=== PATIENT | female | born 1945 | race Caucasian/White ===

== ENCOUNTER 2021-09-05 11:57 | Emergency (ER) | payer MEDICARE ==
[2021-09-05 13:53] LABS: #Basophils 0.1 10x3/uL (0.0-0.2); #Eosinphils 0.1 10x3/uL (0.0-0.5); #Monocytes 1.1 10x3/uL (0.0-1.1); #Neutrophils 13.4 10x3/uL (1.5-8.4); %Basophils 0.5 % (0.0-2.0); %Eosinophils 0.9 % (0.0-6.0); %Lymphocytes 4.6 % (18.0-47.0); %Neutrophils 86.6 % (40.0-75.0); Hemoglobin 12.5 g/dL (12.0-15.5); Mean Corpuscular HGB CONC 30.9 g/dL (32.0-36.0); Mean Corpuscular Hemoglobin 29.3 pg (27.0-33.0); Mean Corpuscular Volume 95.1 fl (81.6-98.3); Mean Platelet Volume 10.9 fl (7.4-10.4); Platelet Count 283 10x3/uL (150-450); RBC Distribution Width 14.4 % (11.5-14.5); Red Blood Cell (RBC) Count 4.26 10x6/uL (3.90-5.03); White Blood Cell (WBC) Count 15.5 10x3/uL (3.5-10.5)
[2021-09-05 14:19] LABS: ALT (SGPT) 13 U/L (8-55); AST (SGOT) 22 U/L (5-34); Albumin 3.8 g/dL (3.4-4.8); Alkaline Phosphatase 113 U/L (40-110); Anion Gap 12 mmol/L (10-20); BUN (Urea Nitrogen) 25 mg/dL (9.8-20.1); Bilirubin, Total 0.3 mg/dL (0.2-1.2); Calc. Creatinine Clearance 0 mL/min (70-130); Carbon Dioxide 32 mmol/L (23-31); Chloride 102 mmol/L (98-107); Globulin 4.1 g/dL (2.4-3.5); Glucose 105 mg/dL (83-110); Potassium 4.2 mmol/L (3.5-5.1); Protein, Total 7.9 g/dL (5.8-8.1); Sodium 142 mmol/L (136-145)
[2021-09-05] MEDS ORDERED: Azithromycin 250 MG TAB ONE (16:38)
[2021-09-05] MEDS ORDERED: cefTRIAXone\\ROCEPHIN 2 GM VIAL ONE (16:38)
== END 2021-09-05 18:15 | disposition home or self-care (01) ==
LOC: CSHERS 11:57
DX: J18.9 Pneumonia, unspecified organism (principal); R04.2 Hemoptysis
CPT/HCPCS: 71045; 71275; 80053; 84484; 85025; 85379; 93005; 96365; J0696

== ENCOUNTER 2021-10-13 14:37 | Inpatient (IN) | payer MEDICARE ==
[2021-10-13] MEDS ORDERED: Cefepime 2 GM VIAL ONE (15:46)
[2021-10-13] MEDS ORDERED: Acetaminophen 325 MG TAB ONE (15:46)
[2021-10-13 16:17] LABS: #Monocytes 0.5 10x3/uL (0.0-1.1); #Neutrophils 4.9 10x3/uL (1.5-8.4); %Basophils 0.5 % (0.0-2.0); %Monocytes 7.6 % (0.0-10.0); %Neutrophils 82.1 % (40.0-75.0); Hemoglobin 13.8 g/dL (12.0-15.5); Mean Corpuscular HGB CONC 31.2 g/dL (32.0-36.0); Mean Corpuscular Hemoglobin 29.6 pg (27.0-33.0); Mean Corpuscular Volume 94.8 fl (81.6-98.3); Mean Platelet Volume 10.8 fl (7.4-10.4); Platelet Count 179 10x3/uL (150-450); RBC Distribution Width 15.2 % (11.5-14.5); Red Blood Cell (RBC) Count 4.66 10x6/uL (3.90-5.03); White Blood Cell (WBC) Count 5.9 10x3/uL (3.5-10.5)
[2021-10-13 16:25] LABS: ALT (SGPT) 27 U/L (8-55); AST (SGOT) 65 U/L (5-34); Alkaline Phosphatase 49 U/L (40-110); Anion Gap 13 mmol/L (10-20); BUN (Urea Nitrogen) 22 mg/dL (9.8-20.1); Bilirubin, Total 0.2 mg/dL (0.2-1.2); Calc. Creatinine Clearance 0 mL/min (70-130); Calcium 8.2 mg/dL (7.8-10.44); Carbon Dioxide 33 mmol/L (23-31); Chloride 96 mmol/L (98-107); Glucose 162 mg/dL (83-110); Potassium 3.8 mmol/L (3.5-5.1); Sodium 138 mmol/L (136-145)
[2021-10-13 17:17] LABS: SARS-CoV-2 NAA Rapid Test Not Detected (NotDetected)
[2021-10-13 19:08] LABS: Bilirubin Neg (Negative); Blood, Urine 150 (Negative); Clarity Clear (Clear); Glucose, Urine (Dipstick) Normal (Negative); Ketone, Urine 50 mg/dL (Negative); Leukocyte Negative (Negative); Nitrite Negative (Negative); Protein, Urine (Dipstick) 100 mg/dl (Neg-Trace); Specific Gravity, Urine 1.025 (1.002-1.036); Urobilinogen Normal mg/dL (Less than 2)
[2021-10-13 19:17] LABS: RBC/HPF 0-3 HPF (0-3); Squamous Epithelial 0-3 HPF (0-3)
[2021-10-13 19:19] LABS: Bacteria/HPF 1+ HPF (None Seen); Mucous/LPF Few LPF (<2+)
[2021-10-13 20:48] LABS: CKMB 2.2 ng/mL (0-6.6)
[2021-10-13] MEDS ORDERED: guaiFENesin/Dextromethorphan 10 ML UDCUP PO PRN (21:38)
[2021-10-13] MEDS ORDERED: Melatonin 3 MG TAB PO PRN (21:39)
[2021-10-13 21:53] LABS: Magnesium 1.5 mg/dL (1.6-2.6)
[2021-10-14] MEDS: Sodium Chloride 0.9% 1,000 ML IV SCH (03:13)
[2021-10-14 03:29] LABS: Legionella Urinary Ag Negative (Negative); Strep pneumo Urine Ag NEGATIVE (NEGATIVE)
[2021-10-14 04:07] LABS: Anion Gap 10 mmol/L (10-20); BUN (Urea Nitrogen) 12 mg/dL (9.8-20.1); Calc. Creatinine Clearance 0 mL/min (70-130); Calcium 7.4 mg/dL (7.8-10.44); Carbon Dioxide 29 mmol/L (23-31); Chloride 99 mmol/L (98-107); Glucose 89 mg/dL (83-110); Potassium 3.4 mmol/L (3.5-5.1); Sodium 135 mmol/L (136-145)
[2021-10-14 04:11] LABS: #Monocytes 0.4 10x3/uL (0.0-1.1); #Neutrophils 5.1 10x3/uL (1.5-8.4); %Basophils 0.3 % (0.0-2.0); %Lymphocytes 13.3 % (18.0-47.0); %Monocytes 5.9 % (0.0-10.0); %Neutrophils 79.6 % (40.0-75.0); Hemoglobin 11.9 g/dL (12.0-15.5); Mean Corpuscular HGB CONC 31.6 g/dL (32.0-36.0); Mean Corpuscular Hemoglobin 29.5 pg (27.0-33.0); Mean Corpuscular Volume 93.5 fl (81.6-98.3); Mean Platelet Volume 10.6 fl (7.4-10.4); Platelet Count 143 10x3/uL (150-450); RBC Distribution Width 14.6 % (11.5-14.5); Red Blood Cell (RBC) Count 4.03 10x6/uL (3.90-5.03); White Blood Cell (WBC) Count 6.4 10x3/uL (3.5-10.5)
[2021-10-14] MEDS ORDERED: Cefepime 2 GM VIAL ONE ×2 (04:26→15:44)
[2021-10-14] MEDS: Cefepime 2 GM in Sodium Chloride 0.9% 100 ML IVPB SCH ×2 (04:40→15:47)
[2021-10-14] MEDS ORDERED: Potassium Chloride 20 MEQ TAB PO SCH (08:00)
[2021-10-14] MEDS ORDERED: Magnesium 2 GM/50 ML 2 GM in Premix Bag 1 BAG IVPB SCH (08:00)
[2021-10-14] MEDS: Lacosamide 50 mg Tablet PO SCH ×3 (08:38→21:30)
[2021-10-14] MEDS: Calcium Carbonate 600 MG + Vit D TAB PO SCH ×2 (08:38→15:57)
[2021-10-14] MEDS: Enoxaparin Sodium 40 MG/0.4 ML SYRINGE SC SCH (08:38)
[2021-10-14 10:54] VITALS: BMI 24.5
[2021-10-14 15:59] LABS: Reference Lab Name LABCORP
[2021-10-14 16:00] LABS: Ref Lab Test Ordered RESP VIRAL PANEL
[2021-10-14] MEDS: clonazePAM 0.5 MG TAB PO SCH (21:30)
[2021-10-14] MEDS: Acetaminophen 325 MG TAB PO PRN (21:30)
[2021-10-15] MEDS: Sodium Chloride 0.9% 1,000 ML IV SCH ×2 (02:45→18:17)
[2021-10-15] MEDS: Acetaminophen 325 MG TAB PO PRN (04:10)
[2021-10-15] MEDS: Cefepime 2 GM in Sodium Chloride 0.9% 100 ML IVPB SCH ×2 (04:13→15:31)
[2021-10-15 07:12] LABS: Hemoglobin 11.7 g/dL (12.0-15.5); Mean Corpuscular HGB CONC 31.4 g/dL (32.0-36.0); Mean Corpuscular Hemoglobin 29.3 pg (27.0-33.0); Mean Corpuscular Volume 93.5 fl (81.6-98.3); Mean Platelet Volume 10.7 fl (7.4-10.4); Platelet Count 144 10x3/uL (150-450); RBC Distribution Width 14.5 % (11.5-14.5); Red Blood Cell (RBC) Count 3.99 10x6/uL (3.90-5.03)
[2021-10-15 07:20] LABS: ALT (SGPT) 70 U/L (8-55); AST (SGOT) 110 U/L (5-34); Alkaline Phosphatase 39 U/L (40-110); Anion Gap 14 mmol/L (10-20); BUN (Urea Nitrogen) 11 mg/dL (9.8-20.1); Bilirubin, Total 0.3 mg/dL (0.2-1.2); Calc. Creatinine Clearance 79 mL/min (70-130); Calcium 7.6 mg/dL (7.8-10.44); Carbon Dioxide 27 mmol/L (23-31); Chloride 99 mmol/L (98-107); Globulin 3.4 g/dL (2.4-3.5); Glucose 77 mg/dL (83-110); Magnesium 1.8 mg/dL (1.6-2.6); Potassium 3.3 mmol/L (3.5-5.1); Protein, Total 6.4 g/dL (5.8-8.1); Sodium 137 mmol/L (136-145)
[2021-10-15 07:23] LABS: Lymphocytes 13 % (21-51); Monocytes 12 % (0-10)
[2021-10-15 07:26] LABS: MDiff Complete? YES; Neutrophil 75 % (42-75); Platelet Morphology Comment Appears Adequate; RBC Morphology Normal
[2021-10-15] MEDS: Lacosamide 50 mg Tablet PO SCH ×3 (08:11→21:03)
[2021-10-15] MEDS: Calcium Carbonate 600 MG + Vit D TAB PO SCH ×2 (08:11→18:11)
[2021-10-15] MEDS: Enoxaparin Sodium 40 MG/0.4 ML SYRINGE SC SCH (08:11)
[2021-10-15] MEDS ORDERED: Potassium Chloride 20 MEQ TAB PO SCH (11:15)
[2021-10-15] MEDS: clonazePAM 0.5 MG TAB PO SCH (21:03)
[2021-10-16] MEDS: Cefepime 2 GM in Sodium Chloride 0.9% 100 ML IVPB SCH ×2 (04:05→16:51)
[2021-10-16 05:11] LABS: Anion Gap 10 mmol/L (10-20); BUN (Urea Nitrogen) 11 mg/dL (9.8-20.1); Calc. Creatinine Clearance 78 mL/min (70-130); Calcium 8.2 mg/dL (7.8-10.44); Carbon Dioxide 33 mmol/L (23-31); Chloride 101 mmol/L (98-107); Glucose 78 mg/dL (83-110); Potassium 4.2 mmol/L (3.5-5.1); Sodium 140 mmol/L (136-145)
[2021-10-16] MEDS: Sodium Chloride 0.9% 1,000 ML IV SCH (05:47)
[2021-10-16] MEDS: Enoxaparin Sodium 40 MG/0.4 ML SYRINGE SC SCH (09:58)
[2021-10-16] MEDS: Lacosamide 50 mg Tablet PO SCH ×3 (09:58→21:40)
[2021-10-16] MEDS: Calcium Carbonate 600 MG + Vit D TAB PO SCH ×2 (09:58→18:33)
[2021-10-16] MEDS: clonazePAM 0.5 MG TAB PO SCH (21:41)
[2021-10-17] MEDS: Cefepime 2 GM in Sodium Chloride 0.9% 100 ML IVPB SCH (04:51)
[2021-10-17] MEDS: Sodium Chloride 0.9% 1,000 ML IV SCH (04:51)
[2021-10-17] MEDS: Lacosamide 50 mg Tablet PO SCH ×3 (09:17→21:27)
[2021-10-17] MEDS: Enoxaparin Sodium 40 MG/0.4 ML SYRINGE SC SCH (09:18)
[2021-10-17] MEDS: Calcium Carbonate 600 MG + Vit D TAB PO SCH ×2 (09:18→17:52)
[2021-10-17] MEDS: clonazePAM 0.5 MG TAB PO SCH (21:27)
[2021-10-18] MEDS: Sodium Chloride 0.9% 1,000 ML IV SCH (05:16)
[2021-10-18 05:41] LABS: BUN (Urea Nitrogen) 10 mg/dL (9.8-20.1); Calc. Creatinine Clearance 85 mL/min (70-130); Calcium 8.5 mg/dL (7.8-10.44); Glucose 92 mg/dL (83-110); Magnesium 1.7 mg/dL (1.6-2.6)
[2021-10-18 05:48] LABS: Anion Gap 13 mmol/L (10-20); Carbon Dioxide 35 mmol/L (23-31); Chloride 98 mmol/L (98-107); Potassium 3.6 mmol/L (3.5-5.1); Sodium 142 mmol/L (136-145)
[2021-10-18] MEDS: Lacosamide 50 mg Tablet PO SCH ×2 (09:24→15:36)
[2021-10-18] MEDS: Calcium Carbonate 600 MG + Vit D TAB PO SCH ×2 (09:24→15:36)
[2021-10-18] MEDS: Enoxaparin Sodium 40 MG/0.4 ML SYRINGE SC SCH (09:25)
[2021-10-18 12:42] VITALS: TEMP 98.2
[2021-10-18 13:50] VITALS: BP 155/72
== END 2021-10-18 15:55 | disposition home health service (06) | DRG 871 ==
LOC: CSHERS 14:37 → CSHERHOLD 10-14 01:50 → CSHTELE 10-14 06:13
PROVIDERS: ADMIT Family Medicine; ATTEND Family Medicine
DX: A41.9 Sepsis, unspecified organism (principal); J18.9 Pneumonia, unspecified organism; J96.01 Acute respiratory failure with hypoxia; N39.0 Urinary tract infection, site not specified; M81.0 Age-related osteoporosis without current pathological fracture; G40.909 Epilepsy, unspecified, not intractable, without status epilepticus; R77.8 Other specified abnormalities of plasma proteins; R73.09 Other abnormal glucose; F41.9 Anxiety disorder, unspecified; E83.42 Hypomagnesemia; E83.51 Hypocalcemia; E87.6 Hypokalemia; R13.10 Dysphagia, unspecified; Z20.822 Contact with and (suspected) exposure to COVID-19; Z79.899 Other long term (current) drug therapy
CPT/HCPCS: 0240U; 36415; 36416; 51701; 71045; 80048; 80053; 81003; 81015; 82553; 83605; 83735; 83880; 84484; 85025; 87040; 87070; 87086; 87205; 87449; 87899; 93005; 93010; 93306; 94760; 96365; 96366; 96367; J0692; J1650; J1956; J3475; J3490; J7050

== ENCOUNTER 2021-11-11 13:45 | Outpatient (CLI) | payer MEDICARE | END 2021-11-11 13:46 | disposition home or self-care (01) | LOC: CSHRAD 13:45 | PROVIDERS: ATTEND Family Medicine | DX: J18.9 Pneumonia, unspecified organism (principal); R91.1 Solitary pulmonary nodule | CPT/HCPCS: 71046 ==

== ENCOUNTER 2021-11-24 12:58 | Outpatient (CLI) | payer MEDICARE | END 2021-11-24 12:59 | disposition home or self-care (01) | LOC: CSHCT 12:58 | PROVIDERS: ATTEND Family Medicine | DX: R91.1 Solitary pulmonary nodule (principal); J47.9 Bronchiectasis, uncomplicated; J98.4 Other disorders of lung; N20.0 Calculus of kidney | CPT/HCPCS: 71250 ==

== ENCOUNTER 2022-04-20 10:54 | Outpatient (CLI) | payer MEDICARE | END 2022-04-20 10:55 | disposition home or self-care (01) | LOC: CSHMAMMO 10:54 | PROVIDERS: ATTEND Family Medicine | DX: Z12.31 Encounter for screening mammogram for malignant neoplasm of breast (principal); M81.0 Age-related osteoporosis without current pathological fracture | CPT/HCPCS: 77063; 77067; 77080 ==

== ENCOUNTER 2022-07-20 15:45 | Emergency (ER) | payer MEDICARE ==
[2022-07-20 17:54] LABS: #Basophils 0.1 10x3/uL (0.0-0.2); #Eosinphils 0.3 10x3/uL (0.0-0.5); #Monocytes 1.2 10x3/uL (0.0-1.1); #Neutrophils 9.9 10x3/uL (1.5-8.4); %Basophils 0.6 % (0.0-2.0); %Lymphocytes 10.2 % (18.0-47.0); %Monocytes 9.5 % (0.0-10.0); %Neutrophils 77.2 % (40.0-75.0); Hemoglobin 12.5 g/dL (12.0-15.5); Mean Corpuscular HGB CONC 32.6 g/dL (32.0-36.0); Mean Corpuscular Hemoglobin 30.9 pg (27.0-33.0); Mean Platelet Volume 10.3 fl (7.4-10.4); Platelet Count 293 10x3/uL (150-450); RBC Distribution Width 13.6 % (11.5-14.5); Red Blood Cell (RBC) Count 4.04 10x6/uL (3.90-5.03); White Blood Cell (WBC) Count 12.8 10x3/uL (3.5-10.5)
[2022-07-20 18:11] LABS: ALT (SGPT) 9 U/L (8-55); AST (SGOT) 21 U/L (5-34); Albumin 4.2 g/dL (3.4-4.8); Alkaline Phosphatase 82 U/L (40-110); Anion Gap 14 mmol/L (10-20); BUN (Urea Nitrogen) 24 mg/dL (9.8-20.1); Bilirubin, Total 0.4 mg/dL (0.2-1.2); Calc. Creatinine Clearance 0 mL/min (70-130); Calcium 9.2 mg/dL (7.8-10.44); Carbon Dioxide 31 mmol/L (23-31); Chloride 100 mmol/L (98-107); Estimated GFR 91; Glucose 90 mg/dL (83-110); Potassium 4.2 mmol/L (3.5-5.1); Protein, Total 8.2 g/dL (5.8-8.1); Sodium 141 mmol/L (136-145)
[2022-07-20 18:13] LABS: Bilirubin Neg (Negative); Blood, Urine 10 (Negative); Clarity Clear (Clear); Glucose, Urine (Dipstick) Normal (Negative); Ketone, Urine Negative (Negative); Leukocyte Negative (Negative); Nitrite Negative (Negative); Protein, Urine (Dipstick) Negative (Neg-Trace); Urobilinogen Normal mg/dL (Less than 2)
[2022-07-20 18:27] LABS: Bacteria/HPF Rare-Few HPF (None Seen); Squamous Epithelial 0-3 HPF (0-3); WBC/HPF 0-3 HPF (0-3)
[2022-07-20] MEDS ORDERED: Acetaminophen 500 MG TAB ONE (19:15)
== END 2022-07-20 23:32 | disposition home or self-care (01) ==
LOC: CSHERS 15:45
DX: R10.2 Pelvic and perineal pain (principal)
CPT/HCPCS: 72131; 72192; 80053; 81003; 81015; 84484; 85025; 85652; 86140; 93005

== ENCOUNTER 2023-10-12 10:18 | Outpatient (CLI) | payer MEDICARE ==
[~2023-10-12 10:18] MED LIST: Iopamidol 300 61% 100 ML VIAL FS ONE
== END 2023-10-12 10:19 | disposition home or self-care (01) ==
LOC: CSHCT 10:18
PROVIDERS: ATTEND Physician Assistant
DX: R93.89 Abnormal findings on diagnostic imaging of other specified body structures (principal); R91.8 Other nonspecific abnormal finding of lung field; J90 Pleural effusion, not elsewhere classified; I51.7 Cardiomegaly; E04.1 Nontoxic single thyroid nodule
CPT/HCPCS: 71270; 82565